=== PATIENT | male | born 1965 | race Caucasian/White ===

== ENCOUNTER 2022-07-15 05:55 | Day surgery (SDC) | payer BC ==
[2022-07-15] VITALS (16 sets, daily range): BP systolic 93–150; BP diastolic 49–102
[~2022-07-15] VITALS: Ht 175.3 cm; Wt 99.1 kg
--- NOTE | 2022-07-15 07:36 | NUR ---
Ambulatory in Day SurgerY WITH STEADY GATE. Surgical site prepped with 2% Chlorhexidine cloth wipe. History, Chart, Medications and Allergies reviewed before start of procedure. Lungs clear T/O to Auscultation. Patient confirms NPO status and agrees with scheduled surgery. Pre-Op teaching done. Pt verbalizes understanding. PT GLASSES PLACED IN PACU, PT CELLPHONE IN BELONGING BAG.
--- NOTE | 2022-07-15 08:32 | NUR ---
07/15/22 0832 Axel Spears I PATIENT RECEIVED 1 GRAM VANCOMYCIN IN THE PREOPERATIVE SETTING.
--- NOTE | 2022-07-15 18:27 | NUR ---
SHIFT SUMMARY PT A&OX4, VSS/RA, CLAU PO, PAIN MANAGED, AMB SBA FWW & GB, PT AND OT EVAL'D TODAY. S/P R WILMER, DRESSING DRY/INTACT. WILL REPORT TO ONCOMING NOC RN.
--- NOTE | 2022-07-15 18:33 | NUR ---
"Spiritual Care | Pt. Request Pt. is awake and sitting in a recliner when he welcomes my visit. 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 Facilitated a brief life review, and the Pt. is a man of [place]. Pt. displayed evidence of a positive spirit. Prayed with Pt. Pt. verbalized graititude for the spiritual care visit."
--- NOTE | 2022-07-16 04:32 | NUR ---
summary POD1 R WILMER. PRESSURE TAPE DRESSING TO RIGHT HIP C/D/I. PATIENT IS TOLERATING WALKING, VOIDING, AND PO INTAKE. DENIES N/T IN ALL EXT'S. PAIN WELL MANAGED WITH TYLENOL AND TORADOL. SCD'S AND MARILEE STANFORD IN PLACE, DESTINEE JAMES ON R HIP. PLAN FOR PT IN AM AND DISCHARGE HOME. VSS, WILL REPORT TO DAY RN.
[2022-07-16 04:52] VITALS: BP 102/63
[2022-07-16 05:13] LABS: BASOPHILS ABSOLUTE AUTO 0.02 K/mm3 (0.00-0.23); BASOPHILS PERCENT AUTO 0 % (0-2); EOSINOPHILS ABSOLUTE AUTO 0.03 K/mm3 (0.00-0.68); EOSINOPHILS PERCENT AUTO 0 % (0-6); Hematocrit 37.7 % (37.0-53.0); Hemoglobin 13.2 g/dL (13.5-17.5); IMMATURE GRAN ABSOLUTE AUTO 0.05 K/mm3 (0.00-0.10); IMMATURE GRAN PERCENT AUTO 0 % (0-1); LYMPHOCYTES ABSOLUTE AUTO 1.33 K/mm3 (0.84-5.20); LYMPHOCYTES PERCENT AUTO 12 % (21-46); MONOCYTES ABSOLUTE AUTO 1.44 K/mm3 (0.16-1.47); MONOCYTES PERCENT AUTO 13 % (4-13); Mean Corpuscular HGB 31.5 pg (26.0-34.0); Mean Corpuscular Volume 90 fL (80-100); Mean Platelet Volume 10.3 fL (9.1-12.4); NEUTROPHILS ABSOLUTE AUTO 8.42 K/mm3 (1.96-9.15); NEUTROPHILS PERCENT AUTO 75 % (41-73); Platelet Count 184 K/mm3 (150-400); RDW Coefficient Variation 12.2 % (11.7-14.2); RDW Standard Deviation 39.7 fL (35.1-46.3); Red Blood Cell Count 4.19 M/mm3 (4.30-5.90); White Blood Cell Count 11.29 K/mm3 (4.00-11.30)
[2022-07-16 05:38] LABS: Bun/Creatinine Ratio 26.9 (12.0-20.0); Calcium, Blood 8.7 mg/dL (8.5-10.1); Creatinine, Blood 0.82 mg/dL (0.60-1.20); Magnesium, Blood 2.1 mg/dL (1.6-2.4); Potassium, Blood 4.2 mmol/L (3.5-5.5)
--- NOTE | 2022-07-16 10:50 | NUR ---
DISCHARGE SUMMARY PT A&OX4, VSS/RA, CLAU PO, VOIDING, AMB SBA FWW, PAIN MANAGED, IV DC'D. DC INS PROVIDED. PT AND REP UNDERSTANDING THOSE INSTRUCTIONS INCLUDING FU WITH SURGEON, DRESSING CHANGES, ALL AMB WITH FWW, MEDS/FILLED AT HOME, PT OUTPT, ICE AND ELEVATE AT REST. LEFT FLOOR VIA WC WITH [employer]SP[employer]ATION TECHNICIAN TO GO HOME WITH WITH ALL PERSONAL POSSESSIONS INCLUDING DC PACKET, AQUACEL DRESSINGS.
== END 2022-07-16 10:20 | disposition home or self-care (01) ==
LOC: ORSCMMR 05:55 → ORD 07:30 → ORSCMMR 07:30 → SURS 10:32 → ORSCMMR 07-16 10:20
PROVIDERS: Orthopaedic Surgery
PROC: 0SR90JA Replacement of Right Hip Joint with Synthetic Substitute, Uncemented, Open Approach (ICD-10-PCS; principal; 2022-07-15 07:30)
DX: M16.0 Bilateral primary osteoarthritis of hip (principal)
CPT/HCPCS: 36415; 72170; 80048; 83735; 85025; 97110; 97116; 97162; 97165; 97535; A9270; C1713; C1776; J0171; J0690; J0735; J1100; J1885; J2250; J2405; J2704; J2765; J2795; J3010; J3370; J7120